=== PATIENT | female | born 1950 | race Caucasian/White ===

== ENCOUNTER → 2025-01-25 | Outpatient (CLI) | payer MEDICARE, MEDICAID, SELFPAY ==
--- NOTE | 2025-01-25 08:36 | CT_ITS ---
PROCEDURE: CHEST WITHOUT CONTRAST 01/25/2025 REASON FOR EXAM: LUNG NODULES TECHNIQUE: Chest CT without contrast. Coronal and Sagittal reconstruction series were provided. One or more dose reduction techniques were used (e.g., Automated exposure control, adjustment of the mA and/or kV according to patient size, use of iterative reconstruction technique RADIATION DOSE SUMMARY: CTDlvol: 10.7 mGy DLP: 353 mGycm COMPARISON: 07/25/2024. FINDINGS: No significant change in the size, number or distribution of the previously described pulmonary nodule. The largest in the left lower lobe measuring 9 mm. The largest in the right middle lobe measuring 9 mm. Unchanged moderate coronary artery calcifications. Normal unenhanced main pulmonary artery and right and left pulmonary arteries. Normal bilateral peripheral pulmonary arteries. Normal thoracic aorta and visualized great vessels. There is no demonstrated aortic aneurysm. Normal heart and pericardium. Normal mediastinum. Normal hilar regions. Normal visualized trachea and bronchi. Normal pleura. Mild diffuse spondylosis. Hepatomegaly. Hepatic steatosis. Normal visualized upper abdomen. CT/Chest without Contrast IMPRESSION: IMPRESSION: No significant change in the size, number or distribution of the previously ramirez cribed pulmonary nodule. The largest in the left lower lobe measuring 9 mm. The largest in the right middle lobe measuring 9 mm. Unchanged moderate coronary artery calcifications. Reading Location: [place] [id number]
== END | disposition home or self-care (01) ==
LOC: CT 08:35
PROVIDERS: PCP Internal Medicine; Referring Provider Internal Medicine Critical Care Medicine; Visit Provider Internal Medicine Critical Care Medicine
DX: R91.1 Solitary pulmonary nodule (principal)
CPT/HCPCS: 71250

== ENCOUNTER → 2025-07-31 | Outpatient (CLI) | payer MEDICARE, MEDICAID, SELFPAY ==
--- NOTE | 2025-07-31 08:22 | CT_ITS ---
EXAM: CT Chest Without Intravenous Contrast CLINICAL INDICATION: 9MMLLL, 9MM RML NODULES, NON-SMOKER TECHNIQUE: Axial computed tomography images of the chest without intravenous contrast. This CT exam was performed using one or more of the following dose reduction techniques: automated exposure control, adjustment of the mA and/or kV according to patient size, and/or use of iterative reconstruction technique. COMPARISON: CT Chest dated 01/25/2025 FINDINGS: LUNGS AND PLEURAL SPACES: Multiple nodules of the left lower lobe, measuring up to 9 mm. Multiple nodule of the right middle lobe measuring up to 9 mm. These nodules are stable. No consolidation. No significant effusion. No pneumothorax. HEART: Calcified coronary arterial disease. No cardiomegaly. No significant pericardial effusion. MEDIASTINUM: Scattered mediastinal lymph nodes some of which are upper limits of normal in size and are most likely reactive lymph nodes. BONES/JOINTS: Unremarkable. No acute fracture. SOFT TISSUES: Unremarkable. VASCULATURE: Scattered calcified atherosclerotic disease of aorta. LYMPH NODES: See above. LIVER: Hepatomegaly with fatty infiltration. CT/Chest without Contrast IMPRESSION: 1. Scattered mediastinal lymph nodes some of which are upper limits of normal in size and are most likely reactive lymph nodes. 2. Hepatomegaly with fatty infiltration. 3. No new suspicious pulmonary nodules. Reading Location: [id number]
== END | disposition home or self-care (01) ==
LOC: CT 08:16
PROVIDERS: PCP General Practice; Referring Provider Nurse Practitioner Family; Visit Provider Nurse Practitioner Family
DX: R91.1 Solitary pulmonary nodule (principal)
CPT/HCPCS: 71250